=== PATIENT | female | born 1975 | race African-American/Black ===

== ENCOUNTER → 2016-12-30 | Outpatient (CLI) | payer OTHER ==
[~2016-12-30] MED LIST: BENI40TA3 PO; BENI40TA30 PO; BUTA1CAP PO; CLON1 PO; COLA100C PO; FERR325T8 PO; HYDR-3533 PO; LEVO.025 PO; LEVO25TA4 PO; LORA-474 PO; METO100T PO; METO50TA PO
[2016-12-30 10:53] LABS: AUTOMATED NEUTROPHIL # 2.8 TH/MM3 (1.8-7.7); BASOPHIL % 0.4 % (0.0-2.0); EOSINOPHIL # 0.1 TH/MM3 (0-0.4); LYMPH % 35.4 % (9.0-44.0); LYMPHOCYTE # 1.8 TH/MM3 (1.0-4.8); MEAN CELL VOLUME 76.5 FL (80.0-100.0); MEAN CORPUSCULAR HGB CONC 31.4 % (32.0-36.0); MONO % 6.6 % (0.0-8.0); NEUT % 55.6 % (16.0-70.0); PLATELET COUNT 298 TH/MM3 (150-450); RED BLOOD COUNT 4.57 MIL/MM3 (4.00-5.30); RED CELL DISTRIBUTION WIDTH 24.2 % (11.6-17.2)
[2016-12-30 10:53] LABS: BACTERIA, URINE RARE /hpf; BLOOD, URINE SMALL (NEG); GLUCOSE,URINE NEG (NEG); KETONE, URINE NEG (NEG); NITRITE,URINE NEG (NEG); SQUAMOUS EPITHELIAL CELL URINE <1 /hpf (0-5); URINE COLOR LIGHT-YELLOW (YELLW/STRAW)
[2016-12-30 10:55] LABS: HEMO FLAGS AUTO DIFF
[2016-12-30 11:17] LABS: ANION GAP 5 MEQ/L (5-15); BICARBONATE 25.1 MEQ/L (21.0-32.0); BLOOD UREA NITROGEN 8 MG/DL (7-18); CHLORIDE 107 MEQ/L (98-107); GLOMERULAR FILTRATION RATE 109 ML/MIN (>89); GLUCOSE,FASTING 115 MG/DL (74-99); POTASSIUM 4.2 MEQ/L (3.5-5.1); SODIUM (NA) 137 MEQ/L (136-145)
[2016-12-30 11:30] LABS: BHCG SCREEN QUALITATIVE LESS THAN 1 MIU/ML (0-5)
[2016-12-30 11:31] LABS: OVALOCYTES 2+ (NORMAL); PLATELET ESTIMATE SMEAR NORMAL (NORMAL); PLATELET MORPHOLOGY NORMAL (NORMAL); SCAN/DIFF AUTO DIFF CONFIRMED
== END ==
LOC: CPRE 09:53
PROVIDERS: ATTEND Obstetrics & Gynecology
DX: Z01.812 Encounter for preprocedural laboratory examination (principal); N92.0 Excessive and frequent menstruation with regular cycle
CPT/HCPCS: 36415; 80048; 81001; 84703; 85025

== ENCOUNTER 2017-01-07 06:04 | Observation (INO) | payer OTHER ==
[~2017-01-07] VITALS: Ht 165.1 cm; Wt 98.1 kg
[~2017-01-07 06:04] MED LIST changes: -BENI40TA30 PO; -HYDR-3533 PO; -LEVO.025 PO; -LORA-474 PO; -METO50TA PO
[2017-01-07] MEDS ORDERED: CHLORHEXIDINE GLUCONATE 2 % 1 PACK (2 CLOTHS) TOPICAL PRN (06:30)
[2017-01-07] MEDS ORDERED: LACTATED RINGER'S 1000 ML IV PRN (06:30)
[2017-01-07] MEDS ORDERED: CLINDAMYCIN 600 MG/NS 100 ML IV SCH ×2 (06:30)
[2017-01-07] MEDS ORDERED: POVIDONE IODINE 5% (ANTISEPSIS KIT) 4 APPLICATIONS EACH NARE PRN (06:30)
[2017-01-07] MEDS ORDERED: INSULIN HUMAN REGULAR 1,000 UNITS/10 ML VIAL SQ PRN (06:30)
[2017-01-07] MEDS ORDERED: SODIUM CHLORID 0.9% 500 ML IV PRN (06:30)
[2017-01-07] MEDS ORDERED: METOPROLOL TARTRATE 25 MG TAB PO PRN (06:30)
[2017-01-07] MEDS ORDERED: LEVOFLOXACIN 500 MG PREMIX INJ 100 ML IV SCH (06:30)
[2017-01-07] MEDS ORDERED: APREPITANT 40 MG CAP PO SCH (06:30)
[2017-01-07] MEDS ORDERED: SODIUM CHLORIDE 0.9% INJ 100 ML ONE (06:50)
[2017-01-07] MEDS ORDERED: SUGAMMADEX SODIUM 200 MG/2 ML VIAL IV PUSH ONE ×2 (07:15)
[2017-01-07] MEDS ORDERED: ACETAMINOPHEN 1000 MG/100 ML 100 ML IV ONE (07:15)
[2017-01-07] MEDS ORDERED: MIDAZOLAM HCL 2 MG/2 ML VIAL ONE (07:47)
[2017-01-07] MEDS ORDERED: FAMOTIDINE 20 MG/2 ML VIAL ONE (07:48)
[2017-01-07] MEDS ORDERED: BUPIVACAINE HCL PF 0.25% 30 ML VIAL ONE (07:58)
[2017-01-07] MEDS ORDERED: HYDROmorphone HCL PF 1 MG/ML VIAL IVP PRN (11:30)
[2017-01-07] MEDS ORDERED: SODIUM CHLORIDE 0.9% FLUSH 10 ML FLUSH IV FLUSH PRN (11:30)
[2017-01-07] MEDS ORDERED: ZOLPIDEM TARTRATE 5 MG TAB PO PRN (11:30)
[2017-01-07] MEDS ORDERED: LORazepam 0.5 MG TAB PO PRN (11:30)
[2017-01-07] MEDS ORDERED: oxyCODONE/ACETAMINOPHEN 5 MG/325 MG TAB PO PRN (11:30)
[2017-01-07] MEDS ORDERED: PROMETHAZINE INJ 25 MG/ML VIAL IM PRN (11:30)
[2017-01-07] MEDS ORDERED: ONDANSETRON HCL 4 MG/2 ML VIAL IVP PRN (11:30)
[2017-01-07] MEDS ORDERED: IBUPROFEN 600 MG TAB PO PRN (11:30)
[2017-01-07] MEDS: SODIUM CHLORIDE 0.9% FLUSH 10 ML FLUSH IV FLUSH SCH ×2 (11:30→21:00)
[2017-01-07] MEDS ORDERED: DO NOT ADM ANY ANTICOAGULANT DRUGS PRN (11:45)
[2017-01-07] MEDS: LACTATED RINGER'S 1000 ML INJ 1,000 ML IV SCH ×2 (11:55→19:19)
[2017-01-07] MEDS ORDERED: ONDANSETRON HCL 4 MG/2 ML VIAL IV PUSH ONE (12:00)
[2017-01-07] MEDS ORDERED: PROPOFOL 200 MG/20 ML AMP IV ONE (12:00)
[2017-01-07] MEDS ORDERED: diphenhydrAMINE HCL 25 MG CAP PO PRN (12:00)
[2017-01-07] MEDS ORDERED: LACTATED RINGER'S 1000 ML INJ 2,000 ML IV ONE (12:00)
[2017-01-07] MEDS ORDERED: PHENYLEPH/NS 1000 MCG/10 ML SYR IV ONE (12:00)
--- NOTE | 2017-01-07 12:06 | MP ---
cc: NORMA HOLLAND MD, STEPHEN J. M.D. 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 PROCEDURE Robotic-assisted laparoscopic hysterectomy with bilateral salpingectomy. POSTOPERATIVE DIAGNOSIS Symptomatic uterine fibroids, chronic anemia due to blood loss, pelvic pain; both ovaries left intact. ANESTHESIA General endotracheal intubation. ESTIMATED BLOOD LOSS 150 cc. DRAINS Caballero to gravity. OPERATIVE FINDINGS The patient had a large uterus, approximately 16-18 weeks in size, with multiple fibroids. Both ovaries were normal in appearance. There was no other abnormality present within the pelvis. PATIENT HISTORY The patient has a long chronic history of heavy menstrual bleeding leading to anemia requiring iron therapy and transfusion. The patient elected for hysterectomy, laparoscopic approach with robotic-assist was discussed and consent was signed. The patient received clindamycin and Levaquin due to a penicillin allergy as a prophylactic antibiotics. DETAILS OF PROCEDURE The patient was taken to the operating room and underwent general anesthesia with endotracheal intubation. She was carefully positioned in dorsal lithotomy position using Trip stirrups on the lower extremities. Sequentials were placed on the lower extremities for VTE prophylaxis. She was prepped and draped and a Caballero was inserted by sterile technique. A timeout was conducted and agreed by all present in the room. The procedure was initiated by identifying the cervix. The previously placed intrauterine device was removed that was at the level of the cervix. A large VCare device was inserted through the cervical os and secured. Retractors were removed. Gloves were changed. The abdomen was examined. 0.25% plain Marcaine was injected into the supraumbilical port site using a Veress needle to gain entry into the peritoneal cavity. Pneumoperitoneum was accomplished with low pressure. Once this was accomplished the 5 mm trocar was inserted directly into the perineal cavity. Examination of the pelvic and abdominal contents was noted. The patient was placed in Trendelenburg positioning to evaluate the pelvis, allowing the bowel to be elevated away from the pelvis. Accessory ports were then placed using two ports on the right and one port on the left. These were 8 mm robotic trocars. The camera port was then traded to a 12 mm trocar. Once the trocars were in place the [employer] robot patient cart was side docked, the #2 arm on the left, the #1 and 3 on the right. Monopolar dany were in the #2. Bipolar grasper and fenestrated grasper were placed in 1 and 3 respectively. A 30-degree lens was used for the camera. There was good articulation with no collisions noted. Attention was directed to the surgeon cart where visualization was noted. Review and evaluation of the pelvic anatomy was made. Dissection was initiated by dividing the round ligament on the right side, opening the broad ligament in a sharp fashion using a combination of hot and cold scissors and then bringing it in connection with the left round ligament. This allowed the bladder to fall away from the lower uterine segment. The uterus was incredibly vascular due to the large size. This required meticulous hemostatic technique. The decision was to leave the ovaries in place. The mesentery of the fallopian tube was opened and dissected to allow the tube to be removed with the uterus. The utero-ovarian pedicles were secured hemostatically and dissection of the uterine artery and vein on the right side was accomplished in meticulous fashion with good result. Again, complex and large vessels were noted but these were made hemostatic and there was no hematoma formation. The contralateral side was then dissected in a similar fashion allowing the ovary to be retained and then isolating the vital structures and blood vessels on the left. The vessels were secured hemostatically. Once this was complete the posterior colpotomy incision was made first leaving the anterior vaginal wall intact to allow separation of the uterus in a bivalve fashion. The uterus was bivalved to the level of the cervix with the monopolar scissors on a cut setting to allow removal and retrieval through the vaginal opening. Once this was complete the remainder of the colpotomy was made anteriorly and the uterine specimen was brought through the vaginal opening. This was then removed in two separate pieces from the vagina without complication. There was no active bleeding. A hemostatic tamponade lap pad was placed in the vaginal vault to control the hemoperitoneum. A 2-0 Stratafix suture was inserted through the vaginal cuff into the abdominal cavity by the assistant housekeeping manager and then closure of the vaginal cuff was accomplished under direct vision using the Luis Carlos-Cut needle sales driver in the #2 arm. Good closure was noted. There was no active bleeding. Both ureters were easily visualized and peristalsing normally. The bladder was intact. There was no blood in the urine. Good urine output was then noted. After completion of the surgical portion with the robot the patient robot cart was undocked. Straight laparoscopic instruments were reintroduced. The suture needle from the closure of the cuff was retrieved. Full count was made and correct. Copious irrigation was used to irrigate the pelvis and the abdomen for any retained tissue or blood clot. Observation of the cuff was dry. Pressure test with a sponge stick placed through the vaginal opening by the assistant housekeeping manager demonstrated good integrity of the closure. Once this was complete the pneumoperitoneum was decompressed again and observation revealed good hemostasis. Both ovaries were viable in their appearance. The umbilical port was then closed with a crossbow with #1 Vicryl suture with good closure under direct vision and then the skin incisions were closed after removing the trocars and decompressing the pneumoperitoneum with a 4-0 Monocryl. Steri-Strips and Band-Aids were placed. At the completion of the case the final count was correct. The patient was stable. She was taken to the recovery room on room air. Clear urine was drained through the Caballero. There was no vaginal bleeding. Finesse Linares MD SJYazmin/NILAM /11:26 AM /11:38 AM
[2017-01-07] MEDS: DOCUSATE SODIUM 100 MG CAP PO SCH (13:00)
[2017-01-07] MEDS ORDERED: *morphine SULFATE 8 MG/ML PERIprocedure ONLY ONE (13:16)
[2017-01-07] MEDS: KETOROLAC TROMETHAMINE 30 MG/ML (IVP) VIAL IVP PRN ×2 (13:20→20:34)
[2017-01-07 13:58] LABS: AUTOMATED NEUTROPHIL # 12.2 TH/MM3 (1.8-7.7); BASOPHIL % 0.3 % (0.0-2.0); HEMATOCRIT 33.5 % (35.0-46.0); HEMO FLAGS DIFF FINAL; LYMPH % 12.5 % (9.0-44.0); LYMPHOCYTE # 1.8 TH/MM3 (1.0-4.8); MEAN CELL VOLUME 78.6 FL (80.0-100.0); MEAN CORPUSCULAR HEMOGLOBIN 25.1 PG (27.0-34.0); MEAN CORPUSCULAR HGB CONC 31.9 % (32.0-36.0); MONO % 2.6 % (0.0-8.0); NEUT % 84.6 % (16.0-70.0); PLATELET COUNT 249 TH/MM3 (150-450); RED BLOOD COUNT 4.26 MIL/MM3 (4.00-5.30); RED CELL DISTRIBUTION WIDTH 23.3 % (11.6-17.2); WHITE BLOOD COUNT 14.5 TH/MM3 (4.0-11.0)
[2017-01-07 14:45] VITALS: BP 137/72; PULSE 92; RESP 20; TEMP 96; O2SAT 97
[2017-01-07 20:00] VITALS: BP 134/92; PULSE 96; RESP 18; TEMP 96.9; O2SAT 98
[2017-01-08] VITALS: BP 143/89; PULSE 97; RESP 18; TEMP 96.7; O2SAT 98
[2017-01-08 04:00] VITALS: BP 132/73; PULSE 84; RESP 18; TEMP 96.7; O2SAT 98
[2017-01-08 05:37] VITALS: O2SAT 98
[2017-01-08 08:00] VITALS: BP 138/82; PULSE 91; RESP 21; TEMP 98.4; O2SAT 97
[2017-01-08] MEDS: KETOROLAC TROMETHAMINE 30 MG/ML (IVP) VIAL IVP PRN (08:27)
[2017-01-08] MEDS: SODIUM CHLORIDE 0.9% FLUSH 10 ML FLUSH IV FLUSH SCH (08:28)
--- NOTE | 2017-01-08 10:41 | HHI.PR ---
Subjective Remarks Doing well, pain is controlled, eating well. Voiding. No N/V/D Objective Vital Signs Vital Signs Date Time Temp Pulse Resp B/P (MAP) Pulse Ox O2 Delivery O2 Flow Rate FiO2 01/08/17 08:00 98.4 91 21 138/82 (100) 97 01/08/17 05:37 98 01/08/17 04:00 96.7 84 18 132/73 (92) 98 01/08/17 00:31 16 01/08/17 00:00 96.7 97 18 143/89 (107) 98 01/07/17 21:34 16 01/07/17 20:00 96.9 96 18 134/92 (106) 98 01/07/17 14:45 96.0 92 20 137/72 (93) 97 01/07/17 14:15 97.8 89 24 133/71 (91) 99 Nasal Cannula 2 01/07/17 14:00 90 20 128/65 (86) 99 Nasal Cannula 2 01/07/17 14:00 88 26 128/65 (86) 100 01/07/17 13:45 85 20 124/65 (84) 99 01/07/17 13:30 84 21 131/68 (89) 98 01/07/17 13:15 82 18 137/74 (95) 99 01/07/17 13:00 79 22 136/77 (96) 99 01/07/17 12:45 78 20 142/78 (99) 99 01/07/17 12:30 83 23 145/77 (99) 100 01/07/17 12:15 80 20 144/75 (98) 100 01/07/17 12:00 78 20 136/68 (90) 100 01/07/17 11:45 79 15 117/56 (76) 99 Nasal Cannula 2 01/07/17 11:42 97.8 77 12 120/57 (78) 96 Nasal Cannula 2 I/O 01/07/17 01/07/17 01/07/17 01/08/17 01/08/17 01/08/17 07:00 15:00 23:00 07:00 15:00 23:00 Intake Total 200 ml 1280 ml Output Total 550 ml 1750 ml 400 ml Balance -350 ml 1280 ml -1750 ml -400 ml Intake Oral 480 ml IV Total 200 ml 800 ml Output Urine Total 400 ml 1750 ml 400 ml Estimated Blood Loss 150 ml Result Diagram: 01/07/17 1237 Objective Remarks Chest is clear, regular rate and rhythm. Abdomen is soft and non-distended. Incision is clean and dry. Ext no CCE. A/P Assessment and Plan Post Op Day 1; Robotic total laparoscopic hysterectomy, Large uterine volume Doing well; Stable, BP normal off meds., will resume today. Home today and return to office in two weeks. Finesse Linares MD Jan 08, 2017 10:41
--- NOTE | 2017-01-08 10:43 | HHI.DCPOC ---
Discharge Care Plan Your Health Problems Are: Fever, temperature>100.4 Incisions/drains Inflammation/infection Nausea and/or vomiting Vaginal bleeding Report Symptoms to Your Doctor -Temperature above 100.5 degrees -Redness, of incision or excessive or foul smelling drainage -Unusual pain or calf pain -Increased vaginal bleeding -Painful or difficulty urinating -Feelings of extreme sadness or anxiety after 2 weeks Goals to Promote Your Health * To prevent worsening of your condition and complications * To maintain your health at the optimal level Directions to Meet Your Goals Take your medications as prescribed Follow your dietary instruction Follow activity as directed Ensure plenty of rest for recovery Drink fluids for hydration Keep your appointments as scheduled Take your immunizations and boosters as scheduled If your symptoms worsen call your PCP, if no PCP go to Urgent Care Center or Emergency Room Smoking is Dangerous to Your Health. Avoid second hand smoke Call the 24-hour crisis hotline for domestic abuse at Finesse Linares MD Jan 08, 2017 10:42
[2017-01-08] MEDS: oxyCODONE/ACETAMINOPHEN 5 MG/325 MG TAB PO PRN ×2 (12:51→13:39)
[2017-01-08] MEDS: DOCUSATE SODIUM 100 MG CAP PO SCH ×2 (12:52)
[2017-01-08 12:57] VITALS: BP_SYST 150; BP_SYST 184; BP_DIAS 81; BP_DIAS 90; PULSE 76; RESP 20; TEMP 98.8; O2SAT 100
[2017-01-08 16:58] VITALS: BP 128/72; PULSE 83; RESP 20; TEMP 97.6; O2SAT 97
== END 2017-01-08 17:26 | disposition home or self-care (01) ==
LOC: HSDC 06:04 → HSDI 11:23 → HOCB 14:58
PROVIDERS: ADMIT Obstetrics & Gynecology; ATTEND Obstetrics & Gynecology
DX: D25.9 Leiomyoma of uterus, unspecified (principal); D50.0 Iron deficiency anemia secondary to blood loss (chronic); N88.8 Other specified noninflammatory disorders of cervix uteri; I10 Essential (primary) hypertension
CPT/HCPCS: 00840; 58553; 85025; 86850; 86900; 86901; 88307; 94150; 96372; 96374; 96375; 96376; G0378; J0131; J1170; J1885; J1956; J2250; J2270; J2370; J2405; J2550; J3010; J7120; J8501